=== PATIENT | female | born 1965 ===

== ENCOUNTER 2018-07-18 14:17 | Emergency (ER) | payer MEDICAID ==
[2018-07-18 14:28] VITALS: BP 104/69; PULSE 85; RESP 18; TEMP 98.1; O2SAT 100
[2018-07-18] MEDS ORDERED: Tmp-Smz 800 mg-160 mg DS Tab PO STA (14:51)
--- NOTE | 2018-07-18 14:54 | C.PDOC ---
History Of Present Illness 52 y/o female presents to the ED for evaluation of foul smelling discharge from the left axilla region, onset 2 weeks ago. Patient reports PMHx of hidradenitis suppurativa, with multiple prior I&D procedures and antibiotic courses. Admits she shaves her axilla although instructed not to. Also requesting a refill of Percocet, which she was recently prescribed from a [facility] visit. Time Seen by Provider: 07/18/18 14:42 Chief Complaint (Nursing): Abnormal Skin Integrity History Per: Patient History/Exam Limitations: no limitations Onset/Duration Of Symptoms: Days (x14) Current Symptoms Are (Timing): Still Present Past Medical History Reviewed: Historical Data, Nursing Documentation, Vital Signs Vital Signs: Last Vital Signs Temp 98.1 F 07/18/18 14:26 Pulse 85 07/18/18 14:26 Resp 18 07/18/18 15:25 BP 104/69 07/18/18 14:26 Pulse Ox 100 07/18/18 14:57 Other Surgeries: Colon surgery Family History: States: No Known Family Hx - Social History Hx Alcohol Use: No Hx Substance Use: No - Immunization History Hx Tetanus Toxoid Vaccination: Yes Hx Influenza Vaccination: No Hx Pneumococcal Vaccination: No Review Of Systems Except As Marked, All Systems Reviewed And Found Negative. Constitutional: Negative for: Fever, Chills Cardiovascular: Negative for: Chest Pain Respiratory: Negative for: Shortness of Breath Musculoskeletal: Negative for: Arm Pain Skin: Positive for: Other (Swelling and discharge from left axilla) Neurological: Negative for: Weakness, Numbness, Incoordination Physical Exam - Physical Exam Appears: Non-toxic, No Acute Distress Skin: Warm, Dry, Other (Axilla: L > R scars, deformities, and keloids. + Foul- smelling discharge from small area in the left axilla, no fluctuance) Head: Atraumatic, Normacephalic Neck: Normal ROM Chest: Symmetrical Cardiovascular: Rhythm Regular Respiratory: Normal Breath Sounds, No Accessory Muscle Use Extremity: Normal ROM (with full ROM of upper extremities), Capillary Refill (< 2 sec), No Deformity Pulses: Left Radial: Normal, Right Radial: Normal Neurological/Psych: Oriented x3, Normal Speech, Normal Motor, Normal Sensation ED Course And Treatment O2 Sat by Pulse Oximetry: 100 (RA) Pulse Ox Interpretation: Normal Medical Decision Making Medical Decision Making: Initial Plan: * Bactrim PO Impression: chronic hydradenitis supperativa shaving axilla against medical advise nothing drainable now re-start ABX (usually of little consequence if not systemic) Asks for ref[place] of [place]erc[place]et but [place] Tramadol Rx /5 for bowel surgery? Defer narcotics for chronic minor issues, continue NSAIDS and PPI Disposition Doctor Will See Patient In The: Office Counseled Patient/Family Regarding: Studies Performed, Diagnosis - Disposition Referrals: [facility] [Outside] [facility] [place] [Outside] [facility] [Outside] [place] [facility] [Outside] Disposition: HOME/ ROUTINE Disposition Time: 14:57 Condition: GOOD Additional Instructions: continue Bactrim DS twice a day to complete 5 days Do not shave axilla/arm pits- tends to make it worse continue motrin 400-600 mg every 6 hours as needed Pepcid 20 mg @ night to help prevent gastritis from prolonged use of NSAIDS outpatient [facility] follow-up Call for an appointment Prescriptions: Sulfamethoxazole/Trimethoprim [Bactrim DS 800 mg-160 mg] 1 tab PO BID #9 tab Instructions: Hidradenitis Suppurativa Forms: [facility] (Indonesian) - Clinical Impression Clinical Impression: Hidradenitis axillaris - Scribe Statement The provider has reviewed the documentation as recorded by the Scribe (Hollie Catsro) Provider Attestation: All medical record entries made by the Scribe were at my direction and personally dictated by me. I have reviewed the chart and agree that the record accurately reflects my personal performance of the history, physical exam, medical decision making, and the department course for this patient. I have also personally directed, reviewed, and agree with the discharge instructions and disposition.
[2018-07-18] MEDS ORDERED: Tmp-Smz 800 mg-160 mg DS Tab ONE (15:12)
== END 2018-07-18 15:25 | disposition home or self-care (01) ==
LOC: C.ER 14:17
DX: L73.2 Hidradenitis suppurativa (principal)